=== PATIENT | female | born 1965 | race African-American/Black ===

== ENCOUNTER 2016-12-01 16:29 | Emergency (ER) | payer OTHER ==
[2016-12-01 16:40] VITALS: BMI 37.3
[2016-12-01] MEDS ORDERED: ONDANSETRON *ODT* 4 MG TABLET SL ONE ×2 (17:28→17:30)
[2016-12-01] MEDS ORDERED: ONDANSETRON *ODT* 4 MG TABLET ONE (17:31)
--- NOTE | 2016-12-01 17:36 | PDOC ---
History of Present Illness - General History Source: Patient Exam Limitations: No Limitations - History of Present Illness Initial Comments: 12/01/16 17:42 The patient is a 51-year-old female, with a significant past medical history of borderline diabetes and heroine addiction, who presents to the ED with nausea and vomiting. Patient states that she is detoxing from heroin, last use was at 1 :30 AM today. Pt states that she has been vomiting all day. Pt denies having any other symptoms. <Sadaf Peralta - Last Filed: 12/01/16 17:41> <Lyn Corona - Last Filed: 12/01/16 21:24> - General Chief Complaint: Substance Abuse Stated Complaint: WITHDRAWAL FROM HEROIN Time Seen by Provider: 12/01/16 17:23 Past History <Sadaf Peralta - Last Filed: 12/01/16 17:41> - Past Medical History Diabetes: Yes (BORDERLINE) HTN: Yes - Psycho/Social/Smoking Cessation Hx Suicidal Ideation: No Smoking History: Current every day smoker Number of Cigarettes Smoked Daily: 10 Information on smoking cessation initiated: No Hx Alcohol Use: No Drug/Substance Use Hx: Yes (HEROINE) Substance Use Type: Heroin <Lyn Corona - Last Filed: 12/01/16 21:24> - Past Medical History Allergies/Adverse Reactions: Allergies Allergy/AdvReac Type Severity Reaction Status Date / Time No Known Allergies Allergy Verified 12/01/16 16:39 Home Medications: Ambulatory Orders NK [No Known Home Medication] 12/01/16 Review of Systems - Review of Systems Able to Perform ROS?: Yes Comments:: 12/01/16 17:43 GENERAL/CONSTITUTIONAL: No fever or chills. No weakness. HEAD, EYES, EARS, NOSE AND THROAT: No change in vision. No ear pain or discharge. No sore throat. CARDIOVASCULAR: No chest pain or shortness of breath. RESPIRATORY: No cough, wheezing, or hemoptysis. SKIN: No rash GASTROINTESTINAL: No diarrhea or constipation. +nausea, vomiting GENITOURINARY: No dysuria, frequency, or change in urination. MUSCULOSKELETAL: No joint or muscle swelling or pain. No neck or back pain. NEUROLOGIC: No headache, vertigo, loss of consciousness, or change in strength/ sensation. ENDOCRINE: No increased thirst. No abnormal weight change. HEMATOLOGIC/LYMPHATIC: No anemia, easy bleeding, or history of blood clots. ALLERGIC/IMMUNOLOGIC: No hives or skin allergy. <FabianSadaf - Last Filed: 12/01/16 17:41> *Physical Exam - Vital Signs Last Vital Signs Temp Pulse Resp BP Pulse Ox 98.1 F 73 20 164/72 99 12/01/16 16:35 12/01/16 16:35 12/01/16 16:35 12/01/16 16:35 12/01/16 16:35 - Physical Exam Comments: 12/01/16 17:44 GENERAL: Awake, alert, and fully oriented, in no acute distress HEAD: No signs of trauma EYES: PERRLA, EOMI, sclera anicteric, conjunctiva clear ENT: Auricles normal inspection, nares patent, oropharynx clear without exudates. Moist mucosa. NECK: Normal ROM, supple, no lymphadenopathy, JVD, or masses LUNGS: Breath sounds equal, clear to auscultation bilaterally. No wheezes, and no crackles HEART: Regular rate and rhythm, normal S1 and S2, no murmurs, rubs or gallops ABDOMEN: Soft, obese but nontender, normoactive bowel sounds. No guarding, no rebound. No masses EXTREMITIES: Normal range of motion, no edema. No clubbing or cyanosis. No cords, erythema, or tenderness NEUROLOGICAL: Moving all extremities, awake, speech is clear SKIN: Warm, Dry, normal turgor, no rashes or lesions noted <FabianSadaf - Last Filed: 12/01/16 17:41> - Vital Signs Last Vital Signs Temp Pulse Resp BP Pulse Ox 98.1 F 73 20 164/72 99 12/01/16 16:35 12/01/16 16:35 12/01/16 16:35 12/01/16 16:35 12/01/16 16:35 <Lyn Corona - Last Filed: 12/01/16 21:24> ED Treatment Course - LABORATORY CBC & Chemistry Diagram: 12/01/16 19:10 12/01/16 19:10 <Lyn Corona - Last Filed: 12/01/16 21:24> Medical Decision Making - Medical Decision Making 12/01/16 17:34 51 yo borderline DM , heroin abuse here requesting detox from heroin. pt states last use was 1 am. has been vomiting all day. no f/c . no abd pain. no urinary complaints. no other drug use. no etoh. has been in detox one prior. on exam awake alert nad. lungs clear heart rRRR. abd soft NT ext wwp. nuero awake alert . plan: will treat withdrwal sxs with antiemetics. d/w detox for possible bed. 12/01/16 21:24 pt feeling sunil.r tolerating PO dc with rx for zofran. <Lyn Corona - Last Filed: 12/01/16 21:24> *DC/Admit/Observation/Transfer - Attestations Scribe Attestion: 12/01/16 17:47 Documentation prepared by Sadaf Peralta, acting as medical chemist for Lyn Corona MD. <Sadaf Peralta - Last Filed: 12/01/16 17:41> - Discharge Dispostion Admit: No <Lyn Corona - Last Filed: 12/01/16 21:24> Diagnosis at time of Disposition: Heroin abuse - Patient Instructions Printed Discharge Instructions: Chemical Dependency (Narcotic) (Alternative Therapy) Additional Instructions: drink plenty of fluids. use zofran 8 mg every 8 hours as needed for nausea. return for intractable vomiting or any concerns.
[2016-12-01] MEDS ORDERED: SODIUM CHLORIDE 0.9% 1000 ML INFUS.BAG IV ONE (18:06)
[2016-12-01] MEDS ORDERED: METOCLOPRAMIDE HCL INJECTION 10 MG/2 ML VIAL IVPB ONE (18:07)
[2016-12-01] MEDS ORDERED: METOCLOPRAMIDE HCL INJECTION 10 MG/2 ML VIAL IVPUSH ONE (19:10)
[2016-12-01] MEDS ORDERED: METOCLOPRAMIDE HCL INJECTION 10 MG/2 ML VIAL ONE (19:13)
[2016-12-01 19:16] LABS: BASOPHIL 0.9 % (0-2.0); EOSINOPHIL 0.1 % (0-4.5); MCH 29.5 pg (25.7-33.7); MCHC 33.4 g/dl (32.0-36.0); MEAN CELL VOLUME 88.4 fl (80-96); MEAN PLT VOLUME 7.2 fl (7.5-11.1); NEUTROPHILS 84.5 % (42.8-82.8); PLATELET COUNT 338 K/MM3 (134-434); RDW 14.1 % (11.6-15.6); WHITE BLOOD COUNT 9.6 K/mm3 (4.0-10.0)
[2016-12-01 20:03] LABS: ALBUMIN 4.4 g/dl (3.4-5.0); ALK PHOS 123 U/L (45-117); ANION GAP 13 (8-16); BILIRUBIN,TOTAL 0.7 mg/dL (0.2-1.0); CO2 26 mmol/L (21-32); CREATININE 0.9 mg/dL (0.55-1.02); GLUCOSE,RANDOM 203 mg/dL (74-106); SGPT/ALT 21 U/L (12-78); TOT PROT 8.4 g/dl (6.4-8.2)
[2016-12-01 20:05] LABS: SGOT/AST 20 U/L (15-37)
[2016-12-01 21:28] VITALS: BP 167/87; PULSE 90; TEMP 98.9
== END 2016-12-01 21:28 | disposition home or self-care (01) ==
LOC: JER 16:29
PROC: 3E033GC Introduction of Other Therapeutic Substance into Peripheral Vein, Percutaneous Approach (ICD-10-PCS; principal; 2016-12-01)
DX: F19.10 Other psychoactive substance abuse, uncomplicated (principal); F17.210 Nicotine dependence, cigarettes, uncomplicated; I10 Essential (primary) hypertension
CPT/HCPCS: 36415; 80053; 85025; 99283-25

== ENCOUNTER 2016-12-02 08:33 | Inpatient (IN) | payer OTHER ==
[2016-12-02 09:40] VITALS: BMI 37.5
--- NOTE | 2016-12-02 12:08 | HP ---
COWS - Scale Resting Pulse: 0= [place] 80 or Below Sweatin=Flushed/Facial Moisture Restless Observation: 1= Difficult to Sit Still Pupil Size: 2= Moderately Dilated Bone or Joint Aches: 1= Mild Discomfort Runny Nose/ Eye Tearin= Runny Nose/Eyes GI Upset > 30mins: 3= Vomiting/Diarrhea Tremor Observation: 2= Slight Tremor Visible Yawning Observation: 2= >3x During Session Anxiety or Irritability: 2=Irritable/Anxious Goose Flesh Skin: 0=Smooth Skin COWS Score: 17 Admission ROS S - HPI Chief Complaint: Withdrawal sx. Allergies/Adverse Reactions: Allergies Allergy/AdvReac Type Severity Reaction Status Date / Time No Known Allergies Allergy Verified 12/02/16 10:14 History of Present Illness: 51 y/o woman with a long hx. of opioid dependence is admitted for detox. Pt. has been in previous detox,reports 1 1/2 yr. drug free. Exam Limitations: No Limitations - Ebola screening Have you traveled outside of the country in the last 21 days: No Have you had contact with anyone from an Ebola affected area: No Have you been sick,other than usual withdrawal symptoms: No - Review of Systems Constitutional: Diaphoresis EENT: reports: Nose Congestion Respiratory: reports: No Symptoms reported Cardiac: reports: No Symptoms Reported GI: reports: Nausea, Abdominal cramping : reports: No Symptoms Reported Musculoskeletal: reports: Back Pain, Joint Pain, Muscle Pain Integumentary: reports: Sweating Neuro: reports: Headache Endocrine: reports: No Symptoms Reported Hematology: reports: No Symptoms Reported Psychiatric: reports: No Sypmtoms Reported Other Systems: Reviewed and Negative Patient History - Patient Medical History Hx Anemia: No Hx Asthma: No Hx Chronic Obstructive Pulmonary Disease (COPD): No Hx Cancer: No Hx Cardiac Disorders: No Hx Congestive Heart Failure: No Hx Hypertension: No Hx Hypercholesterolemia: No Hx Pacemaker: No HX Cerebrovascular Accident: No Hx Seizures: No Hx Dementia: No Hx Diabetes: Yes (Type II) Hx Gastrointestinal Disorders: No Hx Liver Disease: No Hx Genitourinary Disorders: No Hx Sexually Transmitted Disorders: No Hx Renal Disease (ESRD): No Hx Thyroid Disease: No Hx Human Immunodeficiency Virus (HIV): No Hx Hepatitis C: No Hx Depression: Yes Hx Suicide Attempt: No Hx Bipolar Disorder: No Hx Schizophrenia: No - Patient Surgical History Past Surgical History: Yes Hx Neurologic Surgery: Yes (L hand carpal tunnel sx 1998) Anesthesia Reaction: No - PPD History Previous Implant?: Yes Documented Results: Negative w/o proof Implanted On Prior [facility] Admission?: No PPD to be Administered?: Yes - Reproductive History Patient is a Female of Child Bearing Age (11 -55 yrs old): Yes LMP comment: 2 yrs. ago Patient : No - Smoking Cessation Smoking history: Current every day smoker Have you smoked in the past 12 months: Yes Aproximately how many cigarettes per day: 10 Hx Chewing Tobacco Use: No Initiated information on smoking cessation: Yes 'Breaking Loose' booklet given: 12/02/16 - Substance & Tx. History Hx Alcohol Use: No Hx Substance Use: Yes Substance Use Type: Heroin Hx Substance Use Treatment: Yes (Detox at [facility] c[facility]. 2016) - Substances Abused Heroin Route: Inhalation Frequency: Daily Amount used: 3-4 bags Age of first use: 51 Date of Last Use: 11/29/16 percocet Route: Oral Frequency: Daily Amount used: 5- 10/325mg Age of first use: 45 Date of Last Use: 11/30/16 Family Disease History - Family Disease History Family Disease History: Diabetes: Father, Heart Disease: Mother (HTN) Admission Physical Exam S - Vital Signs Vital Signs: Vital Signs - 24 hr 12/02/16 09:38 Temperature 97.5 F L Pulse Rate 60 Respiratory 18 Rate Blood Pressure 164/76 - Physical General Appearance: Yes: Sweating, Anxious HEENTM: Yes: Nasal Congestion, Rhinorrhea Respiratory: Yes: Chest Non-Tender, Lungs Clear, Normal Breath Sounds Neck: Yes: Supple Breast: Yes: Breast Exam Deferred Cardiology: Yes: Regular Rhythm, Regular Rate, S1, S2 Abdominal: Yes: Normal Bowel Sounds, Non Tender, Soft Genitourinary: Yes: Within Normal Limits Back: Yes: Within Normal Limits Musculoskeletal: Yes: full range of Motion Extremities: Yes: Within Normal Limits Neurological: Yes: Fully Oriented, Alert Integumentary: Yes: Diaphoresis Lymphatic: Yes: Within Normal Limits - Diagnostic (1) Opioid dependence with withdrawal Current Visit: Yes Status: Acute (2) Type II diabetes mellitus Current Visit: Yes Status: Acute Qualifiers: Diabetes mellitus complication status: without complication Diabetes mellitus inpatient services rn insulin use: without inpatient services rn use Qualified Code(s): E11.9 - Type 2 diabetes mellitus without complications Cleared for Admission [facility] - Detox or Rehab [facility] Level of Care: Medically Managed Detox Regimen/Protocol: Methadone [facility] Breath Alcohol Content Breath Alcohol Content: 0 Urine Pregancy Test - Result Urine Test Results: Negative- NO Line Present Urine Drug Screen - Results Drug Screen Negative: No Urine Drug Screen Results: OPI-Opiates, BZO-Benzodiazepines, OXY-Oxycodone
[2016-12-02] MEDS ORDERED: guaiFENesin/D-METHORPHAN HB 10 ML UNIT-DOSE CUPS PO PRN (12:18)
[2016-12-02] MEDS ORDERED: MENTHOL/PHENOL 1 EACH UD MM PRN (12:18)
[2016-12-02] MEDS ORDERED: MAGNESIUM CITRATE 300 ML BOTTLE PO PRN (12:18)
[2016-12-02] MEDS ORDERED: LOPERAMIDE HCL 2 MG CAPSULE PO PRN (12:18)
[2016-12-02] MEDS ORDERED: MAGNESIUM HYDROX 2400MG/30ML ORAL SUSPENSION 30 ML CUP PO PRN (12:18)
[2016-12-02] MEDS ORDERED: ACETAMINOPHEN 325 MG TABLET (FP) PO PRN (12:18)
[2016-12-02] MEDS ORDERED: diphenhydrAMINE HCL 50 MG CAPSULE PO PRN (12:18)
[2016-12-02] MEDS ORDERED: P-EPHED 60MG/TRIPROLIDI 2.5MG TABLET PO PRN (12:18)
[2016-12-02] MEDS ORDERED: METHADONE HCL 10 MG TABLET (FOR DETOX USE ONLY) PO ONE ×2 (12:34→23:00)
[2016-12-02] MEDS: diazePAM 5 MG TABLET PO PRN ×2 (13:24→18:24)
[2016-12-02] MEDS: GABAPENTIN 300 MG CAPSULE (FP) PO SCH ×2 (13:24→22:33)
[2016-12-02] MEDS: NICOTINE 21 MG/24 HOURS TOPICAL PATCH TD SCH (13:25)
[2016-12-02] MEDS: LISINOPRIL 10 MG TABLET (FP) PO SCH ×2 (13:29→22:33)
--- NOTE | 2016-12-02 15:39 | CONSULT ---
[facility] Psychiatric Consult - Data Date of interview: 12/02/16 Admission source: [facility] Identifying data: This is 51 years old obese female with no psychiatric hospitalization history , reports intoxicated with: Opioids and Nicotine Substance Abuse History: - Smoking Cessation. Smoking history: Current every day smoker. Have you smoked in the past 12 months: Yes. Aproximately how many cigarettes per day: 10. Hx Chewing Tobacco Use: No. Initiated information on smoking cessation: Yes. 'Breaking Loose' booklet given: 12/02/16. - Substance & Tx. History. Hx Alcohol Use: No. Hx Substance Use: Yes. Substance Use Type : Heroin. Hx Substance Use Treatment: Yes (Detox at [facility] ctr. 2016). - Substances Abused. Heroin. Route: Inhalation. Frequency: Daily. Amount used: 3-4 bags. Age of first use: 51. Date of Last Use: 11/29/16. percocet. Route: Oral. Frequency: Daily. Amount used: 5- 10/325mg. Age of first use: 45. Date of Last Use: 11/30/16 Medical History: DM-2, Obesity Psychiatric History: Patient reports history of depression anhd anxiety, reports taking prior to admission: [id number] po qhs. Remeron 15mg po qhs Physical/Sexual Abuse/Trauma History: Denies, unclear Additional Comment: [id number] po qhs. Remeron 15mg po qhs Mental Status Exam - Mental Status Exam Alert and Oriented to: Person Cognitive Function: Fair Patient Appearance: Well Groomed Mood: Anxious Affect: Flat Patient Behavior: Sedated Speech Pattern: Delayed, Slurred Voice Loudness: Moderately Soft/Quiet Thought Process: Circumstantial Thought Disorder: Being Controlled Hallucinations: Denies Suicidal Ideation: Denies Homicidal Ideation: Denies Insight/Judgement: Fair Sleep: Difficulty falling asleep Appetite: Weight gain Muscle strength/Tone: Moderate Hypotonicity Gait/Station: Shuffling Additional Comments: [id number] po qhs. Remeron 15mg po qhs Psychiatric Findings - Problem List ([place] 1, 2,3) (1) Opioid dependence with withdrawal Current Visit: Yes Status: Acute (2) Nicotine dependence Current Visit: Yes Status: Acute (3) Drug-induced mood disorder Current Visit: Yes Status: Acute - Initial Treatment Plan Initial Treatment Plan: [id number] po qhs. Remeron 15mg po qhs
[2016-12-02] MEDS: metFORMIN HCL 500 MG TABLET (FP) PO SCH (17:30)
[2016-12-02] MEDS: INSULIN (NOVOLOG) ASPART 100 UNITS/ML 10ML VIAL SQ SCH ×2 (17:30→22:58)
[2016-12-02 20:03] LABS: URINE APPEARANCE CLEAR; URINE BILIRUBIN NEGATIVE (NEGATIVE); URINE BLOOD NEGATIVE (NEGATIVE); URINE COLOR YELLOW; URINE GLUCOSE (UA) NEGATIVE (NEGATIVE); URINE KETONE 1+ (NEGATIVE); URINE LEUK ESTERASE NEGATIVE (NEGATIVE); URINE NITRITE NEGATIVE (NEGATIVE); URINE PROTEIN NEGATIVE (NEGATIVE); URINE UROBILINOGEN NEGATIVE E.U./dl (0.2-1.0)
[2016-12-02] MEDS: THIAMINE HCL 100 MG TABLET (FP) PO SCH (22:33)
[2016-12-02] MEDS: MIRTAZAPINE 15 MG TABLET (FP) PO SCH (22:59)
[2016-12-03] MEDS: metFORMIN HCL 500 MG TABLET (FP) PO SCH ×2 (07:36→17:26)
[2016-12-03] MEDS: INSULIN (NOVOLOG) ASPART 100 UNITS/ML 10ML VIAL SQ SCH ×4 (07:36→22:55)
--- NOTE | 2016-12-03 09:48 | EKG ---
Test Reason : Blood Pressure : / mmHG Vent. Rate : 061 BPM Atrial Rate : 061 BPM P-R Int : 154 ms QRS Dur : 092 ms QT Int : 374 ms P-R-T Axes : 063 079 039 degrees QTc Int : 376 ms NORMAL SINUS RHYTHM WITH SINUS ARRHYTHMIA NON-SPECIFIC INTRA-VENTRICULAR CONDUCTION DELAY NO PREVIOUS ECGS AVAILABLE Confirmed by CORRIE WINTER MD ([id number]) on 12/03/2016 9:48:10 AM Referred By: Salvador Brown Confirmed By:CORRIE WINTER MD
[2016-12-03] MEDS ORDERED: METHADONE HCL 10 MG TABLET (FOR DETOX USE ONLY) PO ONE (10:00)
[2016-12-03 10:06] LABS: MCH 29.7 pg (25.7-33.7); MCHC 33.2 g/dl (32.0-36.0); MEAN CELL VOLUME 89.5 fl (80-96); MEAN PLT VOLUME 7.4 fl (7.5-11.1); PLATELET COUNT 321 K/MM3 (134-434); RDW 14.7 % (11.6-15.6); WHITE BLOOD COUNT 14.5 K/mm3 (4.0-10.0)
[2016-12-03 10:09] LABS: ALBUMIN 3.9 g/dl (3.4-5.0); ANION GAP 10 (8-16); CALCIUM 9.1 mg/dL (8.5-10.1); CO2 27 mmol/L (21-32); GLUCOSE,RANDOM 138 mg/dL (74-106)
[2016-12-03 10:17] LABS: ALK PHOS 102 U/L (45-117); CREATININE 0.9 mg/dL (0.55-1.02); SGOT/AST 11 U/L (15-37); SGPT/ALT 16 U/L (12-78); TOT PROT 7.4 g/dl (6.4-8.2)
--- NOTE | 2016-12-03 10:23 | PN ---
[facility]HS COWS - Scale Resting Pulse: 0= [place] 80 or Below Sweatin= Chills/Flushing Restless Observation: 3= Extraneous Movement Pupil Size: 1= Pupils >than Normal Bone or Joint Aches: 2= Severe Diffuse Aches Runny Nose/ Eye Tearin= Runny Nose/Eyes GI Upset > 30mins: 2= Nausea/Diarrhea Tremor Observation of Outstretched Hands: 2= Slight Tremor Visible Yawning Observation: 1= 1-2x During Session Anxiety or Irritability: 2=Irritable/Anxious Goose Flesh Skin: 0=Smooth Skin COWS Score: 16 S Progress Note (SOAP) Subjective: alert,irritable,anxious,interrupted sleep,pain in the body and back,tremor Objective: 12/03/16 10:21 Vital Signs Temperature 97.9 F 12/03/16 10:13 Pulse Rate 73 12/03/16 10:13 Respiratory Rate 20 12/03/16 10:13 Blood Pressure 122/68 12/03/16 10:13 O2 Sat by Pulse Oximetry (%) ekg nsr with sinus arrhythmia no chest pain,no sob,no dizziness Laboratory Last Values POC Glucometer 143 UNITS (()) 12/03/16 05:56 Urine Color Yellow 12/02/16 15:00 Urine Appearance Clear 12/02/16 15:00 Urine pH 6.0 (5.0-8.0) 12/02/16 15:00 Ur Specific [place] 1.025 (1.005-1.025) 12/02/16 15:00 Urine Protein Negative (NEGATIVE) 12/02/16 15:00 Urine Glucose (UA) Negative (NEGATIVE) 12/02/16 15:00 Urine Ketones 1+ (NEGATIVE) H 12/02/16 15:00 Urine Blood Negative (NEGATIVE) 12/02/16 15:00 Urine Nitrite Negative (NEGATIVE) 12/02/16 15:00 Urine Bilirubin Negative (NEGATIVE) 12/02/16 15:00 Urine Urobilinogen Negative E.U./dl (0.2-1.0) 12/02/16 15:00 Ur Leukocyte Esterase Negative (NEGATIVE) 12/02/16 15:00 labs pending Assessment: 12/03/16 10:22 withdrawal symptom Plan: continue detox,bgm monitoring
[2016-12-03] MEDS: GABAPENTIN 300 MG CAPSULE (FP) PO SCH ×2 (10:33→22:13)
[2016-12-03] MEDS: PRENATAL VITAMINS W/ FOLIC ACID TABLET (FP) PO SCH (10:33)
[2016-12-03] MEDS: LISINOPRIL 10 MG TABLET (FP) PO SCH ×2 (10:33→22:13)
[2016-12-03] MEDS: NICOTINE 21 MG/24 HOURS TOPICAL PATCH TD SCH (10:34)
[2016-12-03] MEDS ORDERED: INSULIN (NOVOLOG) ASPART 100 UNITS/ML 10ML VIAL ONE (12:00)
[2016-12-03] MEDS: IBUPROFEN 400 MG TABLET (FP) PO PRN (20:53)
[2016-12-03] MEDS: ZOLPIDEM TARTRATE 10 MG TABLET (PARK CARE ONLY) PO PRN (22:13)
[2016-12-03] MEDS: THIAMINE HCL 100 MG TABLET (FP) PO SCH (22:13)
[2016-12-03] MEDS: MIRTAZAPINE 15 MG TABLET (FP) PO SCH (22:13)
[2016-12-04] MEDS: IBUPROFEN 400 MG TABLET (FP) PO PRN (04:34)
[2016-12-04] MEDS ORDERED: cloNIDine HCL 0.1 MG TABLET PO ONE (05:24)
[2016-12-04] MEDS: INSULIN (NOVOLOG) ASPART 100 UNITS/ML 10ML VIAL SQ SCH ×4 (06:01→22:20)
[2016-12-04] MEDS: metFORMIN HCL 500 MG TABLET (FP) PO SCH ×2 (06:05→18:24)
[2016-12-04] MEDS ORDERED: METHADONE HCL 5 MG TABLET (FOR DETOX USE ONLY) PO ONE (10:00)
[2016-12-04] MEDS: LISINOPRIL 10 MG TABLET (FP) PO SCH ×2 (10:30→22:19)
[2016-12-04] MEDS: GABAPENTIN 300 MG CAPSULE (FP) PO SCH ×2 (10:30→22:19)
[2016-12-04] MEDS: PRENATAL VITAMINS W/ FOLIC ACID TABLET (FP) PO SCH (10:30)
[2016-12-04] MEDS: NICOTINE 21 MG/24 HOURS TOPICAL PATCH TD SCH (10:31)
[2016-12-04] MEDS: NICOTINE POLACRILEX 2 MG GUM BUC PRN (10:33)
[2016-12-04] MEDS ORDERED: INSULIN (NOVOLOG) ASPART 100 UNITS/ML 10ML VIAL ONE (11:31)
--- NOTE | 2016-12-04 12:54 | PN ---
BHS COWS - Scale Resting Pulse: 1= [place] 81-100 Sweatin=Flushed/Facial Moisture Restless Observation: 1= Difficult to Sit Still Pupil Size: 0= Normal to Room Light Bone or Joint Aches: 1= Mild Discomfort Runny Nose/ Eye Tearin= Runny Nose/Eyes GI Upset > 30mins: 2= Nausea/Diarrhea Tremor Observation of Outstretched Hands: 2= Slight Tremor Visible Yawning Observation: 1= 1-2x During Session Anxiety or Irritability: 2=Irritable/Anxious Goose Flesh Skin: 0=Smooth Skin COWS Score: 14 BHS Progress Note (SOAP) Subjective: Anxiety,tremors,sweating,interrupted sleep,restless Objective: 12/04/16 12:51 Last Vital Signs Temp Pulse Resp BP Pulse Ox 98.1 F 81 16 128/68 12/04/16 10:00 12/04/16 10:00 12/04/16 10:00 12/04/16 10:00 Laboratory Tests 12/02/16 12/02/16 12/02/16 10:35 15:00 16:17 WBC RBC Hgb Hct MCV MCHC RDW Plt Count MPV Sodium Potassium Chloride Carbon Dioxide Anion Gap BUN Creatinine Creat Clearance w eGFR POC Glucometer 185 159 Random Glucose Calcium Total Bilirubin AST ALT Alkaline Phosphatase Total Protein Albumin Urine Color Yellow Urine Appearance Clear Urine pH 6.0 Ur Specific [place] 1.025 Urine Protein Negative Urine Glucose (UA) Negative Urine Ketones 1+ H Urine Blood Negative Urine Nitrite Negative Urine Bilirubin Negative Urine Urobilinogen Negative Ur Leukocyte Esterase Negative RPR Titer 12/02/16 12/03/16 12/03/16 22:40 05:56 07:00 WBC 14.5 H D RBC 5.52 H Hgb 16.4 H Hct 49.3 H MCV 89.5 MCHC 33.2 RDW 14.7 Plt Count 321 MPV 7.4 L Sodium Potassium Chloride Carbon Dioxide Anion Gap BUN Creatinine Creat Clearance w eGFR POC Glucometer 148 143 Random Glucose Calcium Total Bilirubin AST ALT Alkaline Phosphatase Total Protein Albumin Urine Color Urine Appearance Urine pH Ur Specific [place] Urine Protein Urine Glucose (UA) Urine Ketones Urine Blood Urine Nitrite Urine Bilirubin Urine Urobilinogen Ur Leukocyte Esterase RPR Titer 12/03/16 12/03/16 12/03/16 07:00 07:00 11:50 WBC RBC Hgb Hct MCV MCHC RDW Plt Count MPV Sodium 140 Potassium 3.6 Chloride 103 Carbon Dioxide 27 Anion Gap 10 BUN 10 Creatinine 0.9 Creat Clearance w eGFR > 60 POC Glucometer 185 Random Glucose 138 H D Calcium 9.1 Total Bilirubin 1.0 D AST 11 L D ALT 16 D Alkaline Phosphatase 102 Total Protein 7.4 Albumin 3.9 Urine Color Urine Appearance Urine pH Ur Specific [place] Urine Protein Urine Glucose (UA) Urine Ketones Urine Blood Urine Nitrite Urine Bilirubin Urine Urobilinogen Ur Leukocyte Esterase RPR Titer Nonreactive labs noted Assessment: 12/04/16 12:53 Withdrawal sx. Plan: Continue detox Repeat CBC
[2016-12-04] MEDS: ZOLPIDEM TARTRATE 10 MG TABLET (PARK CARE ONLY) PO PRN (22:19)
[2016-12-04] MEDS: MIRTAZAPINE 15 MG TABLET (FP) PO SCH (22:19)
[2016-12-04] MEDS: THIAMINE HCL 100 MG TABLET (FP) PO SCH (22:19)
[2016-12-05] MEDS: MAG HYDROX/AL HYDROX/SIMETH 30 ML UNIT-DOSE CUP PO PRN (03:28)
[2016-12-05] MEDS: IBUPROFEN 400 MG TABLET (FP) PO PRN ×2 (04:00→07:54)
[2016-12-05] MEDS ORDERED: TRIMETHOBENZAMIDE HCL 200MG/2ML INJ IM PRN (04:18)
[2016-12-05] MEDS: INSULIN (NOVOLOG) ASPART 100 UNITS/ML 10ML VIAL SQ SCH ×4 (07:15→22:30)
[2016-12-05] MEDS: metFORMIN HCL 500 MG TABLET (FP) PO SCH ×2 (07:54→18:09)
[2016-12-05] MEDS: LISINOPRIL 10 MG TABLET (FP) PO SCH (09:01)
[2016-12-05] MEDS: diazePAM 5 MG TABLET PO PRN (09:01)
[2016-12-05] MEDS ORDERED: METHADONE HCL 5 MG TABLET (FOR DETOX USE ONLY) PO ONE (10:00)
[2016-12-05 10:31] LABS: MCH 29.6 pg (25.7-33.7); MCHC 33.3 g/dl (32.0-36.0); MEAN CELL VOLUME 88.8 fl (80-96); MEAN PLT VOLUME 7.4 fl (7.5-11.1); PLATELET COUNT 302 K/MM3 (134-434); RDW 14.2 % (11.6-15.6); WHITE BLOOD COUNT 9.8 K/mm3 (4.0-10.0)
[2016-12-05] MEDS: NICOTINE 21 MG/24 HOURS TOPICAL PATCH TD SCH (11:00)
[2016-12-05] MEDS: PRENATAL VITAMINS W/ FOLIC ACID TABLET (FP) PO SCH (11:14)
[2016-12-05] MEDS: GABAPENTIN 300 MG CAPSULE (FP) PO SCH ×2 (11:14→22:30)
[2016-12-05] MEDS: LISINOPRIL 20 MG TABLET (FP) PO SCH ×2 (11:20→22:30)
--- NOTE | 2016-12-05 11:40 | PN ---
BHS Progress Note (SOAP) Subjective: Sweating,feeling weak,muscle aches/spasm,restless Objective: 12/05/16 11:38 Vital Signs - 8 hr 12/05/16 12/05/16 06:35 10:00 Temperature 98.1 F 98.2 F Pulse Rate 71 75 Respiratory 16 18 Rate Blood Pressure 170/72 169/72 Laboratory Results - last 24 hr 12/04/16 12/04/16 12/04/16 11:25 16:44 21:57 WBC RBC Hgb Hct MCV MCHC RDW Plt Count MPV POC Glucometer 157 98 108 Ammonia 12/05/16 12/05/16 12/05/16 04:51 07:50 08:00 WBC 9.8 D RBC 5.72 H Hgb 16.9 H Hct 50.8 H MCV 88.8 MCHC 33.3 RDW 14.2 Plt Count 302 MPV 7.4 L POC Glucometer 147 Ammonia 72.06 H ammonia level is high Assessment: 12/05/16 11:38 withdrawal sx. Hyperammonemia Plan: continue detox Lactulose
[2016-12-05] MEDS: LACTULOSE 20 GM/30 ML UDC (FOR ORAL USE ONLY) PO SCH ×2 (14:47→22:30)
[2016-12-05] MEDS: hydrOXYzine PAMOATE 50 MG CAPSULE (FP) PO PRN (18:16)
[2016-12-05] MEDS: THIAMINE HCL 100 MG TABLET (FP) PO SCH (22:30)
[2016-12-05] MEDS: MIRTAZAPINE 15 MG TABLET (FP) PO SCH (22:30)
[2016-12-06] MEDS: MAG HYDROX/AL HYDROX/SIMETH 30 ML UNIT-DOSE CUP PO PRN (02:22)
[2016-12-06] MEDS: hydrOXYzine PAMOATE 50 MG CAPSULE (FP) PO PRN ×2 (02:27→10:51)
[2016-12-06] MEDS: INSULIN (NOVOLOG) ASPART 100 UNITS/ML 10ML VIAL SQ SCH ×4 (07:41→22:35)
[2016-12-06] MEDS: metFORMIN HCL 500 MG TABLET (FP) PO SCH ×2 (07:44→17:30)
[2016-12-06] MEDS ORDERED: METHADONE HCL 10 MG TABLET (FOR DETOX USE ONLY) PO ONE (10:00)
--- NOTE | 2016-12-06 10:15 | PN ---
S Progress Note (SOAP) Subjective: ALERT,IRRITABLE,ANXIOUS,INTERRUPTED SLEEP,LOOSE BOWEL MOVEMENT Objective: 12/06/16 10:14 Vital Signs Temperature 98.4 F 12/06/16 06:00 Pulse Rate 83 12/06/16 07:59 Respiratory Rate 18 12/06/16 07:59 Blood Pressure 149/70 12/06/16 07:59 O2 Sat by Pulse Oximetry (%) Assessment: 12/06/16 10:14 WITHDRAWAL SYMPTOM Plan: CONTINUE DETOX,DISCHARGE IN AM
[2016-12-06] MEDS: LISINOPRIL 20 MG TABLET (FP) PO SCH ×2 (10:45→22:35)
[2016-12-06] MEDS: GABAPENTIN 300 MG CAPSULE (FP) PO SCH ×2 (10:45→22:34)
[2016-12-06] MEDS: LACTULOSE 20 GM/30 ML UDC (FOR ORAL USE ONLY) PO SCH ×2 (10:45→23:12)
[2016-12-06] MEDS: NICOTINE 21 MG/24 HOURS TOPICAL PATCH TD SCH (10:46)
[2016-12-06] MEDS: NICOTINE POLACRILEX 2 MG GUM BUC PRN (10:46)
[2016-12-06] MEDS: PRENATAL VITAMINS W/ FOLIC ACID TABLET (FP) PO SCH (10:46)
[2016-12-06] MEDS: MIRTAZAPINE 15 MG TABLET (FP) PO SCH ×2 (23:12→23:30)
[2016-12-06] MEDS: THIAMINE HCL 100 MG TABLET (FP) PO SCH (23:13)
[2016-12-07] MEDS ORDERED: METHADONE HCL 5 MG TABLET (FOR DETOX USE ONLY) PO ONE (06:00)
--- NOTE | 2016-12-07 06:48 | PN ---
S Progress Note (SOAP) Subjective: ALERT,NO COMPLAINT Objective: 12/07/16 06:47 Vital Signs Temperature 97.3 F L 12/07/16 06:22 Pulse Rate 69 12/07/16 06:22 Respiratory Rate 16 12/07/16 06:22 Blood Pressure 97/55 12/07/16 06:22 O2 Sat by Pulse Oximetry (%) Assessment: 12/07/16 06:47 DETOX COMPLETED,NO WITHDRAWAL SYMPTOM Plan: DISCHARGE TODAY,FOLLOW UP WITH AFTER CARE PROGRAM ARRANGEMENT
--- NOTE | 2016-12-07 06:52 | DS ---
[facility] Detox Discharge Summary Admission Date: 12/02/16 Discharge Date: 12/07/16 - History Present History: Opioid Dependence Additional Comments: FOLLOW UP WITH AFTER CARE PROGRAM ARRANGEMENT AND PMD FOR MEDICAL PROBLEM Pertinent Past History: TYPE 2 DM ELEVATION OF AMMONIA - Physical Exam Results Vital Signs: Vital Signs Temperature 97.3 F L 12/07/16 06:22 Pulse Rate 69 12/07/16 06:22 Respiratory Rate 16 12/07/16 06:22 Blood Pressure 97/55 12/07/16 06:22 O2 Sat by Pulse Oximetry (%) Pertinent Admission Physical Exam Findings: WITHDRAWAL SYMPTOM - Treatment Hospital Course: Detox Protocol Followed, Detoxed Safely, Responded well, Discharged Condition Good Patient has Accepted a Rehab Referral to: DECLINED - Medication Discharge Medications: Ambulatory Orders Gabapentin [Neurontin] 600 mg PO TID 12/02/16 Metformin HCl [Glucophage -] 500 mg PO BID 12/02/16 Mirtazapine [Remeron -] 15 mg PO HS 12/02/16 Mirtazapine [Remeron -] 15 mg PO HS #30 tablet 12/02/16 Zolpidem Tartrate [Ambien] 10 mg PO HS 12/02/16 - Diagnosis (1) Drug-induced mood disorder Current Visit: Yes Status: Acute (2) Nicotine dependence Current Visit: Yes Status: Acute (3) Opioid dependence with withdrawal Current Visit: Yes Status: Acute (4) Type II diabetes mellitus Current Visit: Yes Status: Acute Qualifiers: Diabetes mellitus complication status: without complication Diabetes mellitus long term care phlebotomist insulin use: without long term care phlebotomist use Qualified Code(s): E11.9 - Type 2 diabetes mellitus without complications (5) Hyperammonemia Current Visit: Yes Status: Acute - AMA Did Patient Leave Against Medical Advice: No
[2016-12-07] MEDS: metFORMIN HCL 500 MG TABLET (FP) PO SCH (08:01)
[2016-12-07] MEDS: INSULIN (NOVOLOG) ASPART 100 UNITS/ML 10ML VIAL SQ SCH (08:02)
[2016-12-07 09:30] VITALS: BP 122/44; PULSE 76; TEMP 96.8
[2016-12-07] MEDS: LACTULOSE 20 GM/30 ML UDC (FOR ORAL USE ONLY) PO SCH (10:00)
[2016-12-07] MEDS: PRENATAL VITAMINS W/ FOLIC ACID TABLET (FP) PO SCH (10:00)
[2016-12-07] MEDS: NICOTINE 21 MG/24 HOURS TOPICAL PATCH TD SCH (10:00)
[2016-12-07] MEDS: LISINOPRIL 20 MG TABLET (FP) PO SCH (10:00)
[2016-12-07] MEDS: GABAPENTIN 300 MG CAPSULE (FP) PO SCH (10:00)
== END 2016-12-07 10:00 | disposition home or self-care (01) | DRG 773 ==
LOC: YASAS 08:33 → Y6N 12:18
PROVIDERS: ADMIT Internal Medicine; ATTEND Internal Medicine
PROC: HZ2ZZZZ Detoxification Services for Substance Abuse Treatment (ICD-10-PCS; principal; 2016-12-02)
DX: F11.23 Opioid dependence with withdrawal (principal); F17.210 Nicotine dependence, cigarettes, uncomplicated; F19.24 Other psychoactive substance dependence with psychoactive substance-induced mood disorder; E11.9 Type 2 diabetes mellitus without complications; E72.20 Disorder of urea cycle metabolism, unspecified; I49.9 Cardiac arrhythmia, unspecified; E66.9 Obesity, unspecified; Z68.37 Body mass index [BMI] 37.0-37.9, adult; Z79.84 Long term (current) use of oral hypoglycemic drugs
CPT/HCPCS: 36415; 80053; 81003; 82140; 85027; 86593; 93005; 93010